=== PATIENT | male | born 1990 | race Caucasian/White ===

== ENCOUNTER 2022-12-23 22:47 | Emergency (ER) | payer SELFPAY ==
[~2022-12-23 22:47] MED LIST: Iopamidol 370 76% 200 ML VIAL ONE; Sodium Chloride 0.9% 100 ML BAG ONE
[2022-12-24] MEDS ORDERED: Sodium Chloride 0.9% 1,000 ML ONE ×2 (00:07→01:02)
[2022-12-24] MEDS ORDERED: Ondansetron PF 4 MG/2 ML Vial ONE (00:07)
[2022-12-24 00:11] LABS: #Basophils 0.2 thou/uL (0.0-0.2); #Eosinphils 0.1 thou/uL (0.0-0.7); #Neutrophils 5.4 thou/uL (1.40-6.50); %Basophils 1.8 % (0.0-1.0); %Eosinophils 1.7 % (0.0-10.0); %Lymphocytes 23.2 % (21.0-51.0); %Monocytes 11.1 % (0.0-10.0); %Neutrophils 62.2 % (42.0-75.0); Hemoglobin 16.8 g/dL (14.0-18.0); Mean Corpuscular HGB CONC 33.7 g/dL (32.0-36.0); Mean Corpuscular Hemoglobin 33.7 pg (27.0-31.0); Mean Corpuscular Volume 100.1 fl (78.0-98.0); Mean Platelet Volume 7.9 fL (7.4-10.4); Platelet Count 586 10x3/uL (130-400); RBC Distribution Width 12.2 % (11.5-14.5); Red Blood Cell (RBC) Count 4.97 mill/uL (4.70-6.10); White Blood Cell (WBC) Count 8.7 10x3/uL (4.8-10.8)
[2022-12-24 00:35] LABS: ALT (SGPT) 125 U/L (8-55); AST (SGOT) 147 U/L (5-34); Albumin 4.8 g/dL (3.5-5.0); Alkaline Phosphatase 166 U/L (40-110); Anion Gap 25 mmol/L (10-20); BUN (Urea Nitrogen) Less than 4 mg/dL (8.9-20.6); Bilirubin, Total 0.5 mg/dL (0.2-1.2); Calc. Creatinine Clearance 0 mL/min (70-130); Calcium 9.9 mg/dL (7.8-10.44); Carbon Dioxide 22 mmol/L (22-29); Chloride 96 mmol/L (98-107); Estimated GFR 103; Globulin 3.5 g/dL (2.4-3.5); Glucose 100 mg/dL (70-105); Lipase 61 U/L (8-78); Potassium 3.9 mmol/L (3.5-5.1); Protein, Total 8.3 g/dL (6.0-8.3); Sodium 139 mmol/L (136-145)
[2022-12-24] MEDS ORDERED: Ketorolac Tromethamine 30 MG/ML VIAL ONE (01:02)
[2022-12-24 01:04] LABS: Bilirubin Negative (Negative); Blood, Urine Negative (Negative); CAUTI Indications for Culture Pelvic or flank pain; Clarity Clear (Clear); Glucose, Urine (Dipstick) Negative (Negative); Ketone, Urine Negative (Negative); Leukocyte Negative (Negative); Nitrite Negative (Negative); Protein, Urine (Dipstick) Negative (Neg-Trace); RBC/HPF None Seen HPF (0-3); Specific Gravity, Urine 1.005 (1.002-1.036); Urobilinogen 0.2 mg/dL (Less than 2); WBC/HPF None Seen HPF (0-3); pH, Urine 5.5 (5.0-9.0)
[2022-12-24 01:05] LABS: Squamous Epithelial 0-3 HPF (0-3); Urine Culture Reflex No No
[2022-12-24] MEDS ORDERED: Sodium Chloride 0.9% 50 ML ONE (01:28)
[2022-12-24] MEDS ORDERED: Promethazine HCl 25 MG/ML VIAL ONE (01:28)
[2022-12-24 01:44] LABS: Amphetamine Not Detected (NotDetected); Barbiturates Screen Not Detected (NotDetected); Benzodiazepine Screen Not Detected (NotDetected); Cocaine Metabolite Screen Not Detected (NotDetected); Methadone Not Detected (NotDetected); Methamphetamine Not Detected (NotDetected); Opiate Screen Not Detected (NotDetected); Oxycodone Screen Not Detected (NotDetected); Phencyclidine (PCP) Not Detected (NotDetected); THC/Cannabinoid Screen Not Detected (NotDetected); Tricyclic Screen Not Detected (NotDetected)
[2022-12-24 01:47] LABS: Acetaminophen Less than 10 mcg/mL (10.0-30.0); Alcohol 415.3 mg/dL (Less than 10); Salicylate Less than 8.0 mg/dL (15.0-30.0)
[2022-12-24 02:52] LABS: Lactic Acid 3.9 mmol/L (0.5-2.2)
== END 2022-12-24 05:18 | disposition home or self-care (01) ==
LOC: MADERS 22:47
DX: F10.129 Alcohol abuse with intoxication, unspecified (principal); K29.20 Alcoholic gastritis without bleeding
CPT/HCPCS: 71045; 71275; 74176; 80053; 80306; 80307; 81001; 82550; 83605; 83690; 84484; 85025; 85379; 87040; 93005; 96361; 96374; 96375; J1885; J2405; J2550; J7050

== ENCOUNTER 2022-12-25 18:26 | Emergency (ER) | payer SELFPAY ==
[~2022-12-25 18:26] MED LIST changes: -Iopamidol 370 76% 200 ML VIAL ONE; +Sodium Chloride 0.9% 1,000 ML BAG ONE; -Sodium Chloride 0.9% 100 ML BAG ONE
[2022-12-25] MEDS ORDERED: Morphine 4 MG/ML VIAL ONE (18:44)
[2022-12-25] MEDS ORDERED: Pantoprazole 40 MG VIAL ONE (18:44)
[2022-12-25] MEDS ORDERED: Ondansetron PF 4 MG/2 ML Vial ONE ×2 (18:44→22:43)
[2022-12-25 18:56] LABS: #Basophils 0.1 thou/uL (0.0-0.2); #Eosinphils 0.2 thou/uL (0.0-0.7); #Lymphocytes 1.5 thou/uL (1.20-3.40); #Monocytes 0.5 thou/uL (0.11-0.59); #Neutrophils 3.6 thou/uL (1.40-6.50); %Basophils 2.3 % (0.0-1.0); %Eosinophils 3.6 % (0.0-10.0); %Lymphocytes 24.7 % (21.0-51.0); %Neutrophils 60.3 % (42.0-75.0); Hemoglobin 16.3 g/dL (14.0-18.0); Mean Corpuscular HGB CONC 32.9 g/dL (32.0-36.0); Mean Corpuscular Hemoglobin 33.3 pg (27.0-31.0); Mean Corpuscular Volume 101.1 fl (78.0-98.0); Mean Platelet Volume 7.9 fL (7.4-10.4); Platelet Count 500 10x3/uL (130-400); RBC Distribution Width 12.4 % (11.5-14.5); Red Blood Cell (RBC) Count 4.89 mill/uL (4.70-6.10)
[2022-12-25 19:13] LABS: ALT (SGPT) 118 U/L (8-55); AST (SGOT) 226 U/L (5-34); Albumin 4.7 g/dL (3.5-5.0); Alkaline Phosphatase 154 U/L (40-110); Anion Gap 25 mmol/L (10-20); BUN (Urea Nitrogen) Less than 4 mg/dL (8.9-20.6); Bilirubin, Total 0.6 mg/dL (0.2-1.2); Calc. Creatinine Clearance 0 mL/min (70-130); Calcium 9.9 mg/dL (7.8-10.44); Carbon Dioxide 29 mmol/L (22-29); Chloride 102 mmol/L (98-107); Estimated GFR 83; Globulin 3.3 g/dL (2.4-3.5); Glucose 141 mg/dL (70-105); Potassium 3.9 mmol/L (3.5-5.1)
[2022-12-25 19:14] LABS: Acetaminophen 13 mcg/mL (10.0-30.0); Alcohol 285.4 mg/dL (Less than 10); Lipase 64 U/L (8-78); Salicylate Less than 8.0 mg/dL (15.0-30.0)
[2022-12-25] MEDS ORDERED: niCARdipine 25 MG/10 ML SDV ONE (19:19)
[2022-12-25] MEDS ORDERED: Sucralfate 1 GM/10 ML UDCUP ONE (19:27)
[2022-12-25 19:28] LABS: Critical Call Chemistry NUR.JW17; Sodium 152 mmol/L (136-145)
[2022-12-25] MEDS ORDERED: Sucralfate 1 GM/10 ML UDCUP PO SCH (19:30)
[2022-12-25] MEDS ORDERED: Dextrose 5% in Water 1,000 ML ONE (19:50)
[2022-12-25 23:14] LABS: Anion Gap 19 mmol/L (10-20)
[2022-12-26 00:01] LABS: BUN (Urea Nitrogen) Less than 4 mg/dL (8.9-20.6); Calc. Creatinine Clearance 0 mL/min (70-130); Calcium 8.2 mg/dL (7.8-10.44); Carbon Dioxide 28 mmol/L (22-29); Chloride 95 mmol/L (98-107); Estimated GFR 99; Glucose 114 mg/dL (70-105); Potassium 3.3 mmol/L (3.5-5.1); Sodium 138 mmol/L (136-145)
== END 2022-12-26 00:39 | disposition home or self-care (01) ==
LOC: MADERS 18:26
DX: K29.20 Alcoholic gastritis without bleeding (principal); F17.220 Nicotine dependence, chewing tobacco, uncomplicated; F17.290 Nicotine dependence, other tobacco product, uncomplicated
CPT/HCPCS: 36415; 80053; 80307; 83690; 83735; 85025; 94760; 96361; 96374; 96375; 96376; C9113; J2270; J2405; J7042; J7050; J7070